=== PATIENT | female | born 1965 | race Caucasian/White ===

== ENCOUNTER → 2021-03-01 10:54 | Outpatient (CLI) | payer OTHER, SELFPAY ==
[2021-03-01 15:14] LABS: COVID19 -Nasal RAPID Negative (Negative)
== END ==
PROVIDERS: Visit Provider Nurse Practitioner Family
DX: Z20.822 Contact with and (suspected) exposure to COVID-19 (principal); R09.81 Nasal congestion; R51.9 Headache, unspecified
CPT/HCPCS: 87635

== ENCOUNTER → 2021-03-09 08:34 | Outpatient (CLI) | payer OTHER, SELFPAY ==
[2021-03-09 09:06] LABS: COVID19 -Nasal RAPID Negative (Negative)
== END ==
PROVIDERS: Visit Provider Nurse Practitioner
DX: Z20.822 Contact with and (suspected) exposure to COVID-19 (principal)
CPT/HCPCS: 87635

== ENCOUNTER → 2024-01-01 13:29 | Outpatient (CLI) | payer OTHER, SELFPAY ==
--- NOTE | 2024-01-01 13:31 | DI.RAD.S_ITS ---
PROCEDURE: XR ANKLE LT MIN 3V INDICATIONS: left ankle injury TECHNIQUE: 3 views of the ankle were acquired. COMPARISON: None. FINDINGS: Bones: Avulsion fracture of the distal fibula identified. Acute fracture of the posterior malleolus also seen on the lateral view. Fracture of the 5th metatarsal. Dorsal calcaneal spur seen. Soft tissues: Large amount of swelling seen around the ankle especially laterally. IMPRESSION: Acute fracture of distal fibula, posterior malleolus, 5th metatarsal Dictated by: Bandar Carlisle M.D. on 01/01/2024 at 16:33 Approved by: Bandar Carlisle M.D. on 01/01/2024 at 16:37
--- NOTE | 2024-01-01 13:31 | DI.RAD.S_ITS ---
PROCEDURE: XR FOOT LT MIN 3V INDICATIONS: left ankle injury TECHNIQUE: 3 views of the foot were acquired. COMPARISON: None. FINDINGS: Bones: Comminuted fracture of the mid 5th metatarsal again identified. Fracture of the distal fibula also noted. Os navicularis is noted. Soft tissues: Severe swelling the ankle. IMPRESSION: Fractures of the 5th metatarsal, distal fibula and likely additional avulsion injuries that are not obvious on x-ray. If indicated, MRI may further evaluate. Dictated by: Bandar Carlisle M.D. on 01/01/2024 at 16:37 Approved by: Bandar Carlisle M.D. on 01/01/2024 at 16:45
== END ==
LOC: RAD 13:30
PROVIDERS: Referring Provider Nurse Practitioner Family; Visit Provider Nurse Practitioner Family
DX: S82.832A Other fracture of upper and lower end of left fibula, initial encounter for closed fracture (principal); S82.892A Other fracture of left lower leg, initial encounter for closed fracture; S92.352A Displaced fracture of fifth metatarsal bone, left foot, initial encounter for closed fracture; X58.XXXA Exposure to other specified factors, initial encounter
CPT/HCPCS: 73610; 73630